=== PATIENT | female | born 1990 | race Caucasian/White ===

== ENCOUNTER 2018-02-04 16:47 | Emergency (ER) | payer BC ==
[~2018-02-04] VITALS: Ht 175.3 cm; Wt 97.5 kg
--- NOTE | 2018-02-04 17:35 | NUR ---
Dr Murrell at the bedside for MSE.
[2018-02-04] MEDS ORDERED: ONDANSETRON 4 MG/2 ML VIAL IV ONE (17:45)
[2018-02-04] MEDS ORDERED: IV NORMAL SALINE 1000 ML BAG IV ONE (17:45)
[2018-02-04] MEDS ORDERED: ONDANSETRON 4 MG/2 ML VIAL ONE ×2 (17:48→17:51)
--- NOTE | 2018-02-04 17:56 | NUR ---
Patient is resting comfortably in bed with eyes closed, NAD noted.
--- NOTE | 2018-02-04 18:44 | NUR ---
Pt able to tolorate PO intake, no N/V noted.
[2018-02-04 18:57] LABS: *URINE HCG, QUAL NEGATIVE (NEGATIVE)
--- NOTE | 2018-02-04 19:05 | NUR ---
REPORT TAKEN FROM PAM LONDONO. ASSUMED PT CARE AT THIS TIME. PT SITTING IN CHAIR, W/ SIGNIFICANT OTHER AT BEDSIDE. PENDING LAB RESULTS. NO ACUTE DISTRESS NOTED. PT DENIES N/V OR PAIN.
--- NOTE | 2018-02-04 19:22 | NUR ---
Patient discharged to home in stable conditon. Written and verbal after care instructions given. Patient verbalizes understanding of instructions. IV removed, w/ catheter intact. pressure applied. No bleeding noted at site. Pt denies n/v, and states she "feels so much better". No distress noted. Pt ambulated from ER w/ steady gait. Pt took all personal belongings.
[2018-02-04 19:24] VITALS: BP 128/66
== END 2018-02-04 19:25 | disposition home or self-care (01) ==
LOC: ER 16:48
DX: R11.2 Nausea with vomiting, unspecified (principal); Z88.0 Allergy status to penicillin; Z88.2 Allergy status to sulfonamides
CPT/HCPCS: 84703; A4663; J2405; J7030